=== PATIENT | male | born 1970 | race African-American/Black ===

== ENCOUNTER 2017-10-28 10:38 | Emergency (ER) | payer SELFPAY ==
[2017-10-28] MEDS ORDERED: Metoclopramide IV* 5 MG/ML 2 ML VIAL IV SLOW PU ONE (10:41)
[2017-10-28] MEDS ORDERED: HYDROmorphone INJ* 1 MG/ML CARPUJECT SYRINGE IV SLOW PU ONE ×2 (10:41→15:41)
--- NOTE | 2017-10-28 11:14 | RAD ---
Indication: LEFT ankle pain post twisting fall. Comparison: No relevant prior exams available on the [facility] [place] comparison. Technique: AP, mortise, and lateral views LEFT ankle. Report: Syndesmotic disruption. The talus and remainder of the foot as well as the lateral malleolus are dislocated posterior relative to the tibial plafond and medial malleolus. Bone fragments at the level of the syndesmosis consistent with osseous avulsions. Age indeterminant wafer-shaped bone fragment approximating the medial periphery of the distal metaphysis of the tibia. Nonfocal soft tissue swelling. IMPRESSION: Syndesmotic disruption with ligamentous avulsion fractures and posterior talocrural dislocation. Radiographs of the LEFT lower leg suggested to exclude a more proximal fibular fracture.
[2017-10-28] MEDS ORDERED: Midazolam* 1 MG/ML 10 ML VIAL (10 MG) ONE (11:27)
[2017-10-28] MEDS ORDERED: fentaNYL* 50 MCG/ML 2 ML VIAL (100 MCG VIAL) ONE (11:27)
--- NOTE | 2017-10-28 12:42 | RAD ---
Indication: Post reduction LEFT ankle syndesmosis disruption with ligament osseous avulsions and talocrural joint dislocation. Comparison: No relevant prior exams available on the [facility]ACS for comparison. Technique: AP and crosstable lateral views of the LEFT ankle. AP and lateral views of the LEFT lower leg. REPORT AND IMPRESSION: 1. Relocated talocrural joint postreduction. Medial joint space widening. Fracture fragments posteriorly likely corresponding with posterior tibiofibular ligament avulsion. Probable chronic osseous fragment approximating the medial periphery of the distal metaphysis and medial malleolus of the tibia. Bone fragments along the expected course of the deltoid ligament likely reflecting ligamentous avulsion from the talus. 2. The LEFT lower leg views document a grossly nondisplaced oblique spiral fracture at the proximal metaphysis/diaphysis of the fibula consistent with a Maisonneuve fracture pattern given distal syndesmosis disruption. Normal alignment at the proximal tibia fibula articulation.
--- NOTE | 2017-10-28 12:42 | RAD ---
Indication: Post reduction LEFT ankle syndesmosis disruption with ligament osseous avulsions and talocrural joint dislocation. Comparison: No relevant prior exams available on the [facility]ACS for comparison. Technique: AP and crosstable lateral views of the LEFT ankle. AP and lateral views of the LEFT lower leg. REPORT AND IMPRESSION: 1. Relocated talocrural joint postreduction. Medial joint space widening. Fracture fragments posteriorly likely corresponding with posterior tibiofibular ligament avulsion. Probable chronic osseous fragment approximating the medial periphery of the distal metaphysis and medial malleolus of the tibia. Bone fragments along the expected course of the deltoid ligament likely reflecting ligamentous avulsion from the talus. 2. The LEFT lower leg views document a grossly nondisplaced oblique spiral fracture at the proximal metaphysis/diaphysis of the fibula consistent with a Maisonneuve fracture pattern given distal syndesmosis disruption. Normal alignment at the proximal tibia fibula articulation.
--- NOTE | 2017-10-28 15:15 | RAD ---
Indication: LEFT ankle fracture dislocation. Post relocation. Comparison: October 28, 2017 radiographs. Technique: Noncontrast CT LEFT ankle. Multiplanar reformation. Report: CT clearly due to PACS and acute minimally peripherally displaced fracture involving the posterior medial margin of the distal metaphysis and medial malleolus with severe comminution at the posterior margin of the tibial plafond. Extension of the fracture along the posterior margin of the tibia. Up to 0.7 cm cephalocaudal articular surface incongruity at the posterior margin of the tibial plafond. Disruption of the distal tibia fibula syndesmosis with up to 0.8 cm transverse gap. Corresponding widening of the ankle mortise medially. Small avulsion fragment from the medial malleolus corresponding with the origin of the deltoid ligament with up to 3.5 mm inferior displacement. Talocrural joint effusion. Normal alignment at the subtalar and transverse tarsal joints. No additional fracture evident within the [id number]. Diffuse subcutaneous edema. No loculated soft tissue plane hematoma evident. IMPRESSION: Complex ankle fracture with severely comminuted medial malleolus and posterior tibial plafond and intra-articular fracture with significant articular surface incongruity as well as syndesmotic disruption with widened ankle mortise and evidence for deltoid ligament avulsion.
[2017-10-28] MEDS ORDERED: HYDROmorphone INJ* 1 MG/ML CARPUJECT SYRINGE ONE (15:42)
[2017-10-28 16:02] VITALS: BP 140/70
[2017-10-28] MEDS ORDERED: Ibuprofen TAB* 800 MG PO ONE (16:56)
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
== END 2017-10-28 16:01 | disposition home or self-care (01) ==
LOC: ED 10:38
DX: S82.52XA Displaced fracture of medial malleolus of left tibia, initial encounter for closed fracture (principal); S93.05XA Dislocation of left ankle joint, initial encounter; X50.0XXA Overexertion from strenuous movement or load, initial encounter; J45.909 Unspecified asthma, uncomplicated; Y93.89 Activity, other specified; Y92.89 Other specified places as the place of occurrence of the external cause; Y99.0 Civilian activity done for income or pay
CPT/HCPCS: 96374; 96375; 96376; 99283; A9270-GY; J1170; J2250; J2765; J3010

== ENCOUNTER 2017-11-07 07:57 | Day surgery (SDC) | payer BC, OTHER ==
[~2017-11-07 07:57] MED LIST: Buffered Lidocaine 0.9% SYRIN* 5 ML/SYR SYRINGE INTRADERM ONE; Buffered Lidocaine 0.9% SYRIN* 5 ML/SYR SYRINGE ONE; Dexamethasone IV* 4 MG/ML 1 ML (4 MG) IV SLOW PU ONE; Dexamethasone IV* 4 MG/ML 1 ML (4 MG) ONE; Famotidine IV* 10 MG/ML 2 ML (20 mg) IV ONE; Famotidine IV* 10 MG/ML 2 ML (20 mg) ONE; ceFAZolin 2 GM PREMIX (*) 2 GM/50 ML BAG IVPB ONE
[2017-11-07] MEDS ORDERED: Bupivacaine 0.5% SDV PF* 30 ML VIAL ONE (08:31)
[2017-11-07] MEDS ORDERED: fentaNYL* 50 MCG/ML 2 ML VIAL (100 MCG VIAL) ONE ×5 (08:38→11:11)
[2017-11-07] MEDS ORDERED: Midazolam* 1 MG/ML 5 ML VIAL (5 MG) ONE (08:39)
[2017-11-07] MEDS ORDERED: Propofol* 10 MG/ML 20 ML BTL IV PUSH ONE (08:40)
[2017-11-07] MEDS ORDERED: Lidocaine 2% PF * 5 ML VIAL ONE (08:40)
[2017-11-07] MEDS ORDERED: Ketorolac INJ* 30 MG/ML 1 ML VIAL ONE (08:42)
[2017-11-07] MEDS ORDERED: PROCHLORPERAZINE INJ 5 MG/ML 2 ML VIAL IV PRN (08:44)
[2017-11-07] MEDS ORDERED: HYDROcodone/ACETAMIN 5-325 MG* 1 TAB PO PRN (08:44)
[2017-11-07] MEDS ORDERED: Phenylephrine IV* 40 MCG/ML 10 ML SYRINGE ONE (09:25)
[2017-11-07] MEDS ORDERED: EPHEDrine (Pressors)* 50 MG/ML VIAL ONE (09:30)
[2017-11-07] MEDS ORDERED: Ondansetron INJ* 2 MG/ML VIAL ONE (10:12)
[2017-11-07] MEDS: fentaNYL* 50 MCG/ML 2 ML VIAL (100 MCG VIAL) IV PRN ×4 (10:45→12:02)
[2017-11-07] MEDS ORDERED: oxyCODONE/Acetamin 5/325 MG* TAB ONE ×2 (11:00→11:21)
[2017-11-07] MEDS: oxyCODONE/Acetamin 5/325 MG* TAB PO PRN ×2 (11:02→11:30)
[2017-11-07] MEDS ORDERED: Labetalol IV* 5 MG/ML 20 ML VIAL ONE (13:02)
[2017-11-07 14:34] VITALS: BP 151/86
--- NOTE | 2017-11-07 15:20 | OP ---
OPERATIVE REPORT: DATE OF OPERATION: 11/07/17 DATE OF : 68 SURGEON: Jenaro Huerta MD FILAMENT MAKER: SOSA Barker ANESTHESIOLOGIST: Breezy Geller MD ANESTHESIA: General endotracheal anesthesia with local anesthesia provided by the surgeon. PRE-OP DIAGNOSES: 1. Left ankle Maisonneuve injury with syndesmotic disruption, proximal fibula fracture, medial malleolus fracture, posterior malleolus fracture. 2. Loose bodies in left ankle. POST-OP DIAGNOSIS: 1. Left ankle Maisonneuve injury with syndesmotic disruption, proximal fibula fracture, medial malleolus fracture, posterior malleolus fracture. 2. Loose bodies in left ankle. 3. Osteochondral lesion of the left talus. OPERATIVE PROCEDURE: 1. Left ankle arthroscopy with extensive debridement. 2. Removal of loose bodies from the left ankle joint. 3. Curettage and microfracture of the left medial talar dome osteochondral lesion. 4. Open reduction and internal fixation of the left syndesmosis. 5. Closed treatment of bimalleolar ankle fracture. 6. Closed treatment of proximal fibular fracture. IMPLANTS: Two 3.5 mm Synthes small fragment screws, length 55 mm. TOURNIQUET TIME: 54 minutes at 250 mmHg with a thigh tourniquet. ESTIMATED BLOOD LOSS: Minimal. COMPLICATIONS: None. STATUS: Stable from the operating room to the recovery room and then home. INDICATIONS FOR PROCEDURE: Mahesh sustained a left Maisonneuve ankle injury with intraarticular loose bodies seen on the CT scan. Both operative and non- operative treatment alternatives were reviewed at length in the office. Further , the nature and risks of surgery were reviewed in careful detail in the office , as well as in the preoperative holding area. Our discussions regarding the risks of surgery included, but were not limited to infection, wound problems, nerve injury, neuroma, RSD, persistent symptoms, persistent pain, posttraumatic arthritis, recurrent syndesmotic instability and even the remote chance of a catastrophic complication including the loss of limb. DESCRIPTION OF PROCEDURE: The patient was seen in the preoperative holding unit and informed and written consent was obtained. The appropriate extremity was marked. The patient was then brought to the operating room and carefully positioned on the operating room table. Anesthesia was induced. All bony prominences were padded with great care. A chlorhexidine based pre-scrub was performed followed by a standard prep and drape with ChloraPrep. A surgical safety pause was then conducted in which we confirmed the appropriate patient, extremity, planned procedure, availability of equipment, indication, and administration of prophylactic antibiotics and DVT prophylaxis in the form of a compression boot on the nonsurgical extremity. A well-padded thigh tourniquet had been placed prior to prepping and draping. We started with an Esmarch exsanguination of the leg and inflated the thigh tourniquet to 250 mmHg. The ankle was placed in traction and I performed an ankle arthroscopy using the standard anteromedial portal and then anterolateral portal made under direct visualization. Only the skin was incised with the scalpel and blunt dissection was then used to avoid the neurovascular bundle, especially the SPN while making the portals. Once into the ankle joint, the fracture hematoma was debrided and there were loose cartilage flaps medially which were debrided down to the level of bone exposing a medial talar osteochondral lesion. There were multiple loose bodies in the joint, both chondral and small bony fragments. These were excised with a grasper and shaver. The syndesmosis was visualized and grossly disrupted and I was able to place the scope all the way up into the syndesmosis. There were some areas of the cartilage, especially on the anterior talus with cartilage defects, although they did not go down to bone, so these were simply debrided to achieve stability. Once the extensive debridement and removal of loose bodies were finished, attention was then turned to the osteochondral lesion. A curette was used to make stable margins and remove the calcified layer of cartilage. There was a good subchondral plate, so a microfracture was then performed with a microfracture awl into the lesion. Afterwards, one final debridement was performed to make sure there were no more loose bodies in the joint. The joint was suctioned and the scope was removed and the portals were closed with 3-0 nylon. Attention was then moved to the syndesmosis. A lateral ankle incision was made over the fibula and careful dissection was made down to the level of the fibula with care taken to avoid the SPN, which was not visualized during the procedure. Once at the level of the fibula, I dissected over to the syndesmosis which was grossly unstable with the ligaments torn. I manually reduced the syndesmosis under direct visualization, and once I had it well reduced, placed a large bone clamp to hold it there. Fluoroscopy was then utilized to confirm adequate reduction of the syndesmosis and the ankle mortise. This appeared to be well aligned, so under fluoroscopic guidance, two 3.5 mm small fragment Synthes screws were placed parallel to each other and parallel to the ankle joint, again using fluoroscopic guidance. These had phenomenal bites. Once these were placed, the bone clamp was removed and the syndesmoses was held well reduced. Again under fluoroscopy, we visualized the fixation and then I stressed the ankle joint to assess for any instability and none was appreciated. Additionally, I stressed the ankle joint to see if the medial malleolus or posterior malleolus fractures were unstable or causing any instability of the joint and they were not. Therefore, I decided to close treat the medial malleolus and posterior malleolus fractures. At this time, I used fluoroscopy to assess the proximal fibula fracture again, and this remained well aligned and out to length, so I decided to close treat the proximal fibular fracture as well. Final fluoroscopic images were taken and then the wound was copiously irrigated and closed in a layered fashion, utilizing 3-0 Monocryl and skin stapler. A sterile dressing was then applied and the tourniquet was deflated. The ankle was splinted in a short leg splint in the neutral position. All needle and sponge counts were correct at the end of the case. The patient was awakened from anesthesia and transferred to the recovery room in stable condition. There were no complications. ATTESTATION: I attest that I was present, scrubbed and performed the entire procedure myself. POSTOPERATIVE PLAN: Mahesh will remain nonweightbearing for an anticipated duration of 2 months. Between months 2 and 3, we will start him weightbearing in a boot, and between months 3 and 4 he will be weightbearing in regular shoes. We will plan on taking the syndesmotic screws out around month 4. He will follow up in 2 weeks for likely suture removal, Steri-Strip application and transition into a nonweightbearing short leg cast. [id number]/[facility] #: [id number] HANNAH
--- NOTE | 2017-11-08 08:00 | RAD ---
INDICATION: Left ankle fracture syndesmotic open reduction reduction. COMPARISON: Comparison is made with a prior x-ray study of the left ankle from October 28, 2017. TECHNIQUE: 32 seconds of intermittent fluoroscopic guidance were provided and 7 spot films of the left ankle were obtained in the operating room. FINDINGS: The films demonstrate placement of 2 syndesmotic screws spanning the distal fibula and tibia. The bones are in normal alignment. On the lateral view note is made of a couple fracture fragments which project posterior to the distal tibia. There is also a small fracture fragment arising from the tip of the medial malleolus. IMPRESSION: INTRAOPERATIVE CONTROL FILMS. CPT II Codes: 6045F
== END 2017-11-07 14:10 | disposition home or self-care (01) ==
LOC: OR 07:57
PROVIDERS: ATTEND Orthopaedic Surgery
DX: S82.862A Displaced Maisonneuve's fracture of left leg, initial encounter for closed fracture (principal); S82.845A Nondisplaced bimalleolar fracture of left lower leg, initial encounter for closed fracture; S82.832A Other fracture of upper and lower end of left fibula, initial encounter for closed fracture; J45.909 Unspecified asthma, uncomplicated; X50.0XXA Overexertion from strenuous movement or load, initial encounter; Y92.149 Unspecified place in prison as the place of occurrence of the external cause; Y99.0 Civilian activity done for income or pay
CPT/HCPCS: A9270-GY; C1713; J0690; J1100; J1885; J2250; J2405; J2704; J3010

== ENCOUNTER 2018-03-20 08:29 | Day surgery (SDC) | payer OTHER ==
[~2018-03-20 08:29] MED LIST changes: -Buffered Lidocaine 0.9% SYRIN* 5 ML/SYR SYRINGE ONE; -Dexamethasone IV* 4 MG/ML 1 ML (4 MG) IV SLOW PU ONE; -Dexamethasone IV* 4 MG/ML 1 ML (4 MG) ONE; +DiMENhydriNATE IV* 50 MG/ML VIAL IV PUSH PRN; -Famotidine IV* 10 MG/ML 2 ML (20 mg) IV ONE; -Famotidine IV* 10 MG/ML 2 ML (20 mg) ONE; +Famotidine TAB* 20 MG PO ONE; +Gabapentin CAP(*) 300 MG PO ONE; +Midazolam* 1 MG/ML 5 ML VIAL (5 MG) ONE; +Morphine INJ* 2 MG/ML 1 ML CARPUJECT IV PRN; +Naloxone* 0.4 MG/ML 1 ML VIAL IV PRN; +PROCHLORPERAZINE INJ 5 MG/ML 2 ML VIAL IV PRN; +Scopolamine 1.5 mg* PATCH TRANSDERM PRN; -ceFAZolin 2 GM PREMIX (*) 2 GM/50 ML BAG IVPB ONE; +fentaNYL* 50 MCG/ML 2 ML VIAL (100 MCG VIAL) IV PRN; +fentaNYL* 50 MCG/ML 2 ML VIAL (100 MCG VIAL) ONE; +oxyCODONE/Acetamin 5/325 MG* TAB PO PRN
[2018-03-20] MEDS ORDERED: Famotidine TAB* 20 MG ONE (08:35)
[2018-03-20] MEDS ORDERED: Buffered Lidocaine 0.9% SYRIN* 5 ML/SYR SYRINGE ONE (08:35)
[2018-03-20] MEDS ORDERED: ceFAZolin 2 GM PREMIX (*) 2 GM/50 ML BAG IVPB ONE (08:35)
[2018-03-20] MEDS ORDERED: Gabapentin CAP(*) 300 MG ONE (08:35)
[2018-03-20] MEDS ORDERED: Bupivacaine 0.5% PF 10 ML VIAL INJ ONE (09:03)
[2018-03-20] MEDS ORDERED: hydrALAZINE IV* 20 MG/ML VIAL ONE (09:43)
[2018-03-20] MEDS ORDERED: Flumazenil* 0.1 MG/ML 5 ML MDV ONE (09:43)
[2018-03-20] MEDS ORDERED: Labetalol IV* 5 MG/ML 20 ML VIAL ONE (09:44)
[2018-03-20] MEDS ORDERED: Lidocaine 2% PF * 5 ML VIAL ONE (09:44)
[2018-03-20] MEDS ORDERED: Ondansetron INJ* 2 MG/ML VIAL ONE (09:44)
[2018-03-20] MEDS ORDERED: Propofol* 0 MG/0 ML BTL ONE (09:44)
[2018-03-20] MEDS ORDERED: Dexamethasone IV* 4 MG/ML 1 ML (4 MG) ONE (09:44)
[2018-03-20] MEDS ORDERED: Propofol* 10 MG/ML 20 ML BTL IV PUSH ONE (09:46)
[2018-03-20] MEDS ORDERED: amLODIPine TAB* 5 MG PO ONE (11:19)
[2018-03-20 12:36] VITALS: BP 144/95
--- NOTE | 2018-03-20 13:05 | CONS ---
Cc: Dr. Lopez Russell from [place]; Dr. Huerta* CONSULTATION REPORT: DATE OF CONSULT: 03/20/18 PRIMARY CARE PROVIDER: Dr. Lopez Russell from [place]. REQUESTING PHYSICIAN IN CONSULT: Dr. Huerta. ATTENDING PHYSICIAN WHILE IN THE HOSPITAL: Tramaine Kahn MD (report being dictated by Kodi Reynolds NP). REASON FOR MEDICAL CONSULTATION: 1. Evaluation and medical management of comorbid medical problems. 2. Hypertension. HISTORY OF PRESENT ILLNESS: Mr. Vieira is a 47-year-old male patient who in October 2017 underwent an ORIF of his left ankle. He sustained a fracture at that point secondary to having a break that occurred at work. He underwent the procedure in October, things went well, but unfortunately he has been having some issues with pain and hardware. He sought care again with Dr. Huerta and the hardware was removed today. However, it was noted perioperatively that his blood pressure had been running elevated, when he got here his blood pressure was in the 170s/120s range, his diastolic was very high. He had received hydralazine, labetalol in the PACU. His blood pressure did respond, but we were asked to evaluate. He says that when he was at his primary's, his blood pressure had been running in the 140s to 130s systolic. To his knowledge, he does not really know what the bottom number runs, but it has never been that high. He denies any chest pain or any shortness of breath. He said he did recently have a stress echo or stress test, he is unsure. He had a recent EKG with his primary that he said everything looked okay. He denied today having any headache or lightheadedness. He denied having any blurry vision. No chest pain. He says he had no abdominal pain. He did state that he was up until 3 in the morning last night, driving and he came right here from there. He responded well to the IV medications, but we were asked to evaluate for consult. He denies any headache now or chest pain now. He says he is feeling well. His pain is well controlled in his ankle. He denies any abdominal symptoms. PAST MEDICAL HISTORY: Significant for, 1. Asthma. 2. Now hypertension. PAST SURGICAL HISTORY: 1. He has had an appendectomy. 2. He has has a left ankle ORIF. 3. Now he has had a left ankle hardware removal. HOME MEDICATIONS: According to the preop list include: 1. Prilosec 20 mg p.o. daily. 2. Albuterol 1 to 2 puffs inhaled every 4 hours as needed. 3. Advair 1 puff inhaled daily. ALLERGIES: His allergies to medications include none. FAMILY HISTORY: His mother was healthy. His father and he is unsure as to the reason. SOCIAL HISTORY: He does not smoke. He drinks about 4 to 6 beers 4 to 5 nights out of a week. He denies any recreational drug use. He does work as a tax revenue officer. His surrogate decisionmaker would be his mom. REVIEW OF SYSTEMS: There is no documented fever. He denies having any significant weight change. There was no double vision. He denies having any ear discharge. There is no rhinorrhea. There is no sore throat. No thyroid enlargement. Denies having any chest pain. There is no orthopnea. There is no nocturnal dyspnea. Denies having any abdominal pain. He denies having any nausea. No dysuria. No frequency. There is no seizure. No loss of consciousness. No pruritus. No skin ulceration. Review of 14 systems completed , all others negative. PHYSICAL EXAM: Vital Signs: Now, blood pressure 141/97, pulse 87, respirations 18, O2 sat 98%, temperature 97.5. General: At this time, Mr. Vieira is a 47-year- old male patient who appears to be well nourished, well developed. He is sitting in the ED stretcher. He does not appear to be in any acute distress. HEENT: Head: Atraumatic, normocephalic. Eyes: EOMs are intact. Sclerae are anicteric and not pale. Neck: Supple. Throat: Oral mucosa appears to be moist. No oropharyngeal erythema. Heart: Sounds S1, S2. Regular rate and rhythm. No murmurs, rubs, or gallops. Lungs: Clear to auscultation bilaterally. No wheezes, rales, or rhonchi. Abdomen: Soft. It was flat, it was nontender. Bowel sounds were present. Extremities: Pulses were 2+ throughout. He is moving all 4 extremities with the exception of the left ankle. He has a limited range of motion due to the recent surgery, but distal CSM checks are intact. Neurologically, he is awake, alert and oriented x3. No gross focal deficits. His skin is intact. Old medical records were reviewed. I do note that when he was here previously, his blood pressure did run elevated to 154/115, 166/108, when he was here it was 170/120. Old medical records were reviewed. I am getting records from his primary, he had a recent stress and recent EKG. I am getting an EKG today and last office notes. ASSESSMENT AND PLAN: Mr. Vieira is a 47-year-old male patient coming into Dr. Huerta's service today for an elective removal of hardware to his left ankle. Perioperatively, he was noted to have hypertension. We were asked to evaluate in consult. Recommendations at this point are: 1. Status post left ankle hardware removal. I will defer the management to Dr. Huerta and his team. 2. Asthma. Continue meds as prescribed. 3. Hypertension. I am going to get an EKG today. He is not having any symptoms of end-stage organ failure. I would recommend starting him on Norvasc. I have ordered 5 mg to start today. He needs to get a blood pressure cuff, I discussed this with him, he is going to work on this. In addition to this, he needs close followup with his PCP, I would recommend following up within the next week to reevaluate the blood pressure. He is to continue the Norvasc and he is to return for any chest pain, shortness of breath, fevers, chills, nausea, vomiting or any worrisome symptoms. I do think he is safe for discharge pending the EKG. I am awaiting EKG and the records from his office, if this is all stable, and the blood pressure remains stable, and he tolerates the 5 of Norvasc here, he could be safely discharged home. I did discuss this with my attending, Dr. Kahn. KODI REYNOLDS, DOMINIC [id number]/[facility] #: [id number] HANNAH
--- NOTE | 2018-03-20 16:45 | OP ---
Operative Report - Blank - Operative Report Date of Operation: 03/20/18 Note: PATIENT: Mahesh Vieira DATE OF : 1970 DATE OF SURGERY: 03/20/2018 SURGEON: Jenaro Huerta MD CATCHER PLUG: SOSA Barker, whos assistance was necessary for positioning, retraction, help with instrumentation, and closure. ANESTHESIOLOGIST: Dr. Peters PREOPERATIVE DIAGNOSIS: Left ankle painful retained hardware POSTOPERATIVE DIAGNOSIS: Left ankle painful retained hardware OPERATION: 1. Left ankle, removal of implants, deep. 2. Stress fluoroscopy performed by surgeon under anesthesia. ANESTHESIA: MAC IMPLANTS: Removed Two 3.5mm synthes small fragment screws TOURNIQUET TIME: none SPECIMENS: none ESTIMATED BLOOD LOSS: minimal COMPLICATIONS: none STATUS: Stable from the operating room to the recovery room and then home. INDICATIONS FOR PROCEDURE: Mahesh had a prior ORIF for a Maisonneuve injury and has retained syndesmotic hardware. Both operative and non operative treatment alternatives were reviewed. Further, the nature and risks of surgery were reviewed in careful detail, in the office as well as the pre-operative holding area. Our discussions regarding the risks of surgery included, but were not limited to, infection, wound problems, nerve injury, neuroma, RSD, persistent symptoms, blood clot, fracture, syndesmotic instability, need for further surgery, post- traumatic arthritis, failure of the surgery, and even the remote chance of catastrophic complication, including loss of limb. DESCRIPTION OF PROCEDURE: The patient was seen in the preoperative holding unit and informed written consent was obtained. The appropriate extremity was marked. The patient was then brought to the operating room and carefully positioned on the operating room table. Anesthesia was induced. All bony prominences were padded with great care. A well-padded thigh tourniquet was placed. A chlorhexidine based pre- scrub was performed followed by a chloraprep prep and drape in standard sterile fashion. A surgical safety pause was then conducted in which we confirmed the appropriate patient, extremity, planned procedure, availability of equipment, indication and administration of prophylactic antibiotics, and DVT prophylaxis in the form of a compression boot on the non-surgical extremity. I injected local anesthetic to the area of the prior surgical incision. I utilized the prior lateral ankle incision. I utilized blunt dissection down to the level of the hardware. I then utilized a scalpel to sharply expose the screw head. I then removed the screws utilizing a screwdriver without difficulty. Both of the screws came out in their entirety. I then performed stress testing of the syndesmosis under fluoroscopy. I performed an external rotation stress test. No instability was appreciated at the syndesmosis or ankle mortise. Final fluoroscopic images were obtained demonstrating removal of the hardware. At this point, we irrigated copiously and then closed in layers meticulously utilizing 3-0 Monocryl and 3-0 nylon for the skin. A sterile dressing was then applied. The patient was then awakened from anesthesia and transferred to the recovery room in stable condition. There were no complications. All needle and sponge counts were correct at the end of the case. ATTESTATION: I attest I was present and scrubbed and performed the critical portions of the procedure myself. POSTOPERATIVE PLAN: The plan is to remove the sutures in 2 weeks.
--- NOTE | 2018-03-20 19:40 | RAD ---
CPT II Codes: G9500 . Indication: Left ankle hardware removal. Fluoroscopic services provided for referring physician. 24.9 seconds of fluoroscopy time was used. 5 spot images demonstrates hardware surrounding the right ankle. IMPRESSION: Fluoroscopic services provided for referring physician for hardware.
[2018-03-23] MEDS ORDERED: Scopolamine PATCH Remove* 1 NOTE MISC PATCH OFF ONE (05:56)
== END 2018-03-20 13:14 | disposition home or self-care (01) ==
LOC: OR 08:29
PROVIDERS: ATTEND Orthopaedic Surgery
DX: T84.84XA Pain due to internal orthopedic prosthetic devices, implants and grafts, initial encounter (principal); Y83.1 Surgical operation with implant of artificial internal device as the cause of abnormal reaction of the patient, or of later complication, without mention of misadventure at the time of the procedure; I10 Essential (primary) hypertension; J45.909 Unspecified asthma, uncomplicated; S82.62XS Displaced fracture of lateral malleolus of left fibula, sequela; X58.XXXS Exposure to other specified factors, sequela
CPT/HCPCS: 76000; 88300; 93005; A9270-GY; J0360; J0690; J1100; J2250; J2405; J2704; J3010